=== PATIENT | male | born 1945 | race Caucasian/White ===

== ENCOUNTER 2021-01-28 09:49 | Emergency (ER) | payer MEDICARE, BC ==
[~2021-01-28] VITALS: Ht 177.8 cm; Wt 97.0 kg
[2021-01-28] MEDS ORDERED: normal saline 1000ML IV soln IVB ONE (09:55)
[2021-01-28] MEDS ORDERED: aspirin 81mg tab.chew PO ONE (10:05)
[2021-01-28] MEDS ORDERED: enoxaparin 100mg/ml syringe SUBCUT ONE (10:05)
[2021-01-28 10:16] LABS: BASOPHILS # (AUTO) 0.1 X10'3 (0-0.2); BASOPHILS % (AUTO) 0.8 % (0-1); EOSINOPHILS # (AUTO) 0.2 X10'3 (0-0.9); EOSINOPHILS % (AUTO) 2.3 % (0-6); HEMATOCRIT 45.7 % (42.0-52.0); HEMOGLOBIN 15.5 g/dl (14.0-17.9); LYMPHOCYTES % (AUTO) 25.5 % (21-51); MEAN CORPUSCULAR HEMOGLOBIN 30.6 PG (27.0-31.0); MEAN CORPUSCULAR HGB CONC 33.9 g/dL (33.0-36.5); MEAN CORPUSCULAR VOLUME 90.1 FL (78-98); MEAN PLATELET VOLUME 7.3 FL (7.4-10.4); MONOCYTES # (AUTO) 0.8 X10'3 (0-0.9); MONOCYTES % (AUTO) 10.4 % (2-12); NEUTROPHILS # (AUTO) 4.8 X10'3 (1.8-7.7); PLATELET COUNT 303 X10'3 (140-440); RED BLOOD COUNT 5.07 X10'6 (4.70-6.10); RED CELL DISTRIBUTION WIDTH 13.7 % (11.5-14.5); WHITE BLOOD COUNT 7.8 X10'3 (4.5-11.0)
[2021-01-28 10:30] LABS: PARTIAL THROMBOPLASTIN TIME 29 SECONDS (22-32)
[2021-01-28 10:31] LABS: ALANINE AMINOTRANSFERASE 28 U/L (12-78); ALBUMIN 3.9 G/DL (3.4-5.0); ALBUMIN/GLOBULIN RATIO 0.9 (1.1-1.5); ALKALINE PHOSPHATASE 89 IU/L (46-116); ANION GAP 9 (8-16); ASPARTATE AMINO TRANSFERASE 25 U/L (10-37); BILIRUBIN,TOTAL 0.6 MG/DL (0.1-1.0); BLOOD UREA NITROGEN 14 MG/DL (7-18); BUN/CREATININE RATIO 12.3 (5.4-32.0); CALCIUM 9.2 MG/DL (8.5-10.1); CHLORIDE 103 MMOL/L (99-107); CREATININE 1.14 MG/DL (0.60-1.10); GLUCOSE 120 MG/DL (70-104); POTASSIUM 3.7 MMOL/L (3.5-5.1); SODIUM 140 MMOL/L (135-145); TOTAL CARBON DIOXIDE 28.4 MMOL/L (24-32); TOTAL PROTEIN 8.3 G/DL (6.4-8.2); eGFR 63 ML/MIN
[2021-01-28] MEDS ORDERED: etomidate 2mg/ml inj. IV ONE (10:35)
[2021-01-28] MEDS ORDERED: ASPI-1265 PO (10:58)
[2021-01-28 11:45] VITALS: BP 128/81
== END 2021-01-28 12:14 | disposition home or self-care (01) ==
LOC: ER 09:50
DX: I48.20 Chronic atrial fibrillation, unspecified (principal); R00.2 Palpitations; Z98.890 Other specified postprocedural states; Z79.82 Long term (current) use of aspirin
CPT/HCPCS: 36415; 71045; 80053; 83735; 83880; 84484; 85025; 85610; 85730; 92960; 93005; 94799; 96372; 99291; J1650; J3490; J7030; 94760